=== PATIENT | male | born 1970 | race Caucasian/White ===

== ENCOUNTER 2019-06-28 09:32 | Observation (INO) ==
[~2019-06-28 09:32] MED LIST: Ropivacaine/PF 0.5% 24.62 ML, EPINEPHrine 0.25 MG, Ketorolac 15 MG, Water for inj. (ste... IR ONE
[2019-06-28] MEDS ORDERED: CeFAZolin Syr 3,000MG/30 ML 3,000 MG/30 ML SYRINGE IVPB ONE (10:02)
[2019-06-28] MEDS ORDERED: Acetaminophen IV 1,000 MG/100 ML INFUS..BTL IVPB ONE (10:11)
[2019-06-28] MEDS ORDERED: Famotidine 20 MG/2 ML VIAL IVP ONE (10:11)
[2019-06-28] MEDS ORDERED: Lidocaine -MPF 2% 2 ML VIAL ONE (10:14)
[2019-06-28] MEDS ORDERED: *HR* Propofol 200 MG/20 ML VIAL IVP ONE (10:14)
[2019-06-28] MEDS ORDERED: Ringers Solution, Lactated 1,000 ML IVC SCH ×2 (10:15→14:43)
[2019-06-28] MEDS ORDERED: *HR* FentaNYL (PF) 100 MCG/2 ML VIAL ONE (10:15)
[2019-06-28] MEDS ORDERED: Tranexamic Acid 1,000 MG/10 ML VIAL ONE ×2 (10:15→11:51)
[2019-06-28] MEDS ORDERED: *HR* Midazolam HCl 2 MG/2 ML VIAL ONE (10:15)
--- NOTE | 2019-06-28 10:15 | Discharge Summary ---
<MayankMonica E - Last Filed: 06/28/19 10:14> Date of Encounter: 06/28/19 - Hospital Course Hospital course: Mr. Santos is a 49 year old male - Time Spent with Patient Total time spent providing and/or coordinating discharge services: - Discharge Medications Prescriptions: New Aspirin Enteric Coated [Aspirin EC] 325 mg PO BID 10 Days #20 tablet. Docusate Sodium [Colace] 100 mg PO BID 5 Days #10 capsule OxyCODONE Immed Rel [Roxicodone 5 MG] 5 mg PO Q6HR PRN 5 Days #20 tablet PRN Reason: Severe Pain Continued Diltiazem CD (24hr) [Cardizem CD] 180 mg PO DAILY Discontinued Aspirin [Lo-Dose Aspirin EC] 81 mg PO DAILY Home Medications: Aspirin Enteric Coated [Aspirin EC] 325 mg PO BID 10 Days #20 tablet. 06/28/19 [Rx] Diltiazem CD (24hr) [Cardizem CD] 180 mg PO DAILY 06/28/19 [History] Docusate Sodium [Colace] 100 mg PO BID 5 Days #10 capsule 06/28/19 [Rx] OxyCODONE Immed Rel [Roxicodone 5 MG] 5 mg PO Q6HR PRN 5 Days #20 tablet 06/28/19 [Rx] Allergies/Adverse Reactions: Allergy/AdvReac Type Severity Reaction Status Date / Time Epidural Tray Allergy Unknown See Uncoded 06/15/19 14:03 Comments Primary care physician: PCP NONE - Patient Status Disposition: Home, Self-Care Condition: Good - Discharge Instructions Follow Up With: NONE,PCP [Primary Care Provider] - Additional Instructions: Discharge Instructions: Total Knee Replacement Please call [facility] ([phone]), your Primary Care Physician, or report to the Emergency Room if you have any of the following symptoms: Nausea, vomiting, fever greater that 101.5, swelling, chest pain, shortness of breath, increased pain/redness/drainage/odor for your incision site, numbness/tingling, or any other concerning symptoms. ACTIVITY:Weight-bearing as tolerated. You may progress off support (crutches or walker) as tolerated. Incentive Spirometer 10 times an hour. MEDICATIONS: Upon discharge resume your home medications. Take all the medications as prescribed. Take a stool softener if taking narcotic pain medications. Stool softeners are only effective if you drink enough fluids. Drink 6-8 glass of water or fluids a day, unless this is not allowed for another health problem. Despite using stool softeners, if you haven't had a bowel movement in 3 days, please switch to a gentle laxative. Gentle laxatives are sold over the counter. You should have a bowel movement within 24 hours, if not call the office. You will be discharged from the hospital with a prescription for pain medication. You are encouraged to decrease the use of narcotic pain medication as tolerated. Should you require a refill, please call the office. [facility] prescribes narcotic pain medication for only 4-6 weeks after surgery. If you require pain medication beyond this time period, you may be referred to your Primary Care Physician or to the Pain Clinic for further evaluation. Plan ahead for refills on pain medication as many narcotics either need to be picked up at the office or mailed. It is best to call 48-72 hours in advance of needing a prescription refill so you don't run out of medication. To help control the post-operative pain, you may take NSAIDs (Aleve,Advil, Motrin, Ibuprofen, Naprosyn) or Tylenol as prescribed on the bottle in addition to the pain medication. ANTICOAGULATION (blood thinners): Continue your Aspirin, Lovenox or Coumadin as prescribed to help prevent a blood clot in the leg or in the lungs. As long as your incision remains dry and you tolerate the NSAIDs (Aleve, Advil, Motrin, ibuprofen, naprosyn), it is OK to use the NSAIDS while you are taking your anticoagulation medication. Should your incision start to drain, stop the NSAID and contact our office. Common symptoms of blood clot in the legs include: localized pain, swelling, calf tenderness, redness or discoloration of the skin. Blood clot in the lung symptoms include: shortness of breath, rapid pulse, sweating, and chest pain that worsens with deep breathing, coughing up blood, lightheadedness, feelings of anxiety. If you experience any of these symptoms notify your physician immediately, go to the emergency room, or if having trouble breathing, call 911. WOUND CARE: Leave the dressing on for 7 to 10days. You may change the dressing if it becomes saturated greater than 50%. Do not get the dressing wet at anytime. Wash your hands with antibacterial soap, rinse and dry prior to any wound care. If you have yudy the visiting nurse or rehab facility can remove the stapes 10-14 days after surgery and place steri-strips across the wound. Leave the steri-strips in place until they fall off on their won. You may let water from the shower run on top of the steri-strips. If you do not have a visiting nurse or rehab facility, you will need to return to the office at 10-14 days for the yudy to be removed. If you have itching or redness around the dressing call the office. FOLLOW-UP: Please follow up with your surgeon in the orthopedic clinic in 4 weeks from the day of surgery. If you have yudy that need to be removed, you will need to come back to the office in 10-14 days from the day of surgery. <Mandeep Harrison - Last Filed: 06/29/19 06:43> Orders not resulted at time of discharge: Pending orders 06/28/19 12:28 Surgical Pathology [PTH] Routine Date of Encounter: 06/29/19 - Hospital Course Hospital course: Mr. Santos is a 49 year old male - Time Spent with Patient Total time spent providing and/or coordinating discharge services: Primary care physician: PCP NONE Consults: 06/28/19 14:43 Consult to Nutrition [CONS] Routine Comment: Consulting Provider: NUTRITION Reason for Dietary Consult: Other Other:: Proper nutrition to facilitate wound healing Consult to Occupational Therapy [CONS] Routine Comment: Evaluate, develop and implement POC Reason for Consult: post knee surgery Does patient have active BEDREST order?: No Is patient medically & hemodynamically stable?: Yes Consult to Orthopedic Navigator [CONS] [CONS] Routine Consult to Physical Therapy [CONS] Routine Comment: Evaluate, develop and impliment POC Reason for Consult: post knee surgery Does patient have active BEDREST order?: No Is patient medically & hemodynamically stable?: Yes Consult to Egg Processor [CONS] Routine Reason for SW Consult: post op joint replacement RT Post Op Consult [CONS] Routine Labs on day of discharge: Labs from last 24 hours 06/29/19 06/29/19 06/28/19 00:55 00:55 20:06 WBC 10.7 RBC 4.19 Hgb 12.4 L D Hct 37.6 MCV 89.7 MCH 29.6 MCHC 33.0 RDW 12.7 Plt Count 244 MPV 9.1 L Immature Gran % 0.4 Seg Neutrophils % 90.5 Lymphocytes % 6.1 Monocytes % 2.9 Eosinophils % 0.0 Basophils % 0.1 Neutrophils # 9.7 H Lymphocytes # 0.7 Monocytes # 0.3 Eosinophils # 0.0 Basophils # 0.0 Sodium 137 Potassium 4.3 Chloride 105 Carbon Dioxide 23 BUN 14 Creatinine 0.72 Est GFR ( Amer) > 60 Est GFR (Non-Af Amer) > 60 BUN/Creatinine Ratio 19 Glucose 149 H POC Glucose 140 H Calculated Osmolality 287 Calcium 8.8 06/28/19 01:00 WBC RBC Hgb 14.2 Hct 43.8 MCV MCH MCHC RDW Plt Count MPV Immature Gran % Seg Neutrophils % Lymphocytes % Monocytes % Eosinophils % Basophils % Neutrophils # Lymphocytes # Monocytes # Eosinophils # Basophils # Sodium Potassium Chloride Carbon Dioxide BUN Creatinine Est GFR ( Amer) Est GFR (Non-Af Amer) BUN/Creatinine Ratio Glucose POC Glucose Calculated Osmolality Calcium - Impressions ITS Impressions Knee X-Ray 06/28/19 01:00 IMPRESSION: Anatomic alignment status post right knee arthroplasty. No evidence of hardware complication. D/ / Amador Yadav MD / Amador Yadav MD Interpreting Provider: Amador Yadav MD <Monica Curtis - Last Filed: 06/30/19 13:16> Orders not resulted at time of discharge: Pending orders 06/28/19 12:28 Surgical Pathology [PTH] Routine Date of Encounter: 06/30/19 Time of Encounter: 12:00 - Discharge Diagnosis (1) Status post total right knee replacement Priority: Primary Status: Acute (2) Osteoarthritis of right knee Priority: Primary Status: Chronic Qualifiers: Osteoarthritis type: unspecified Qualified Code(s): M17.11 - Unilateral primary osteoarthritis, right knee (3) HTN (hypertension) Priority: Secondary Status: Chronic Qualifiers: Hypertension type: essential hypertension Qualified Code(s): I10 - Essential (primary) hypertension (4) JOSS (obstructive sleep apnea) Priority: Secondary Status: Chronic (5) Obesity (BMI 30-39.9) Priority: Secondary Status: Chronic (6) Afib Priority: Secondary Status: Chronic Qualifiers: Atrial fibrillation type: unspecified Qualified Code(s): I48.91 - Unspecified atrial fibrillation - Hospital Course Hospital course: Mr. Santos is a 49 year old male status post right TKR 06/28/19 with medical history of HTN, JOSS, afib, obesity. He participated in therapy and was able to demonstrate ability to navigate stairs, necessary for home. He did have increase in pain overnight in calf and thigh, doppler was negative for DVT and this pain did improve with addition of muscle relaxers. He is stable for discharge home at this time and will follow up in [facility] office next week. PCR - POD#2 s/p right TKR 06/28/19 Patient seen at bedside, without complaints. A&O x 3 Afebrile, vital signs stable. Dressings had minimal drainage, will be changed today. mild calf tenderness to palpation, good dorsiflexion of foot, sensation intact distally. doppler overnight was negative for DVT. Labs reviewed. H/H - 11.8/36.3 stable, asymptomatic Pain control: adequate with addition of muscle relaxer. will send rx home for this as well. Patient requests to have gabapentin removed from his med list as he states he does not like how it makes him feel and no longer wants to take it. Participating in PT. much improved on maneuvering stairs today. he does have chronic back pain causing weakness to left leg and recommended to wear left knee brace as well while ambulating to prevent buckling All questions and concerns addressed. Educated on use of incentive spirometer. Encouraged ambulation and proper hydration. Patient educated on post-operative restrictions and post-operative care. Assessment and plan: Continue with postoperative care Discharge plan: Home with outpatient therapy. - Time Spent with Patient Total time spent providing and/or coordinating discharge services: Date of admission: 06/28/19 Primary care physician: PCP NONE Consults: 06/28/19 14:43 Consult to Nutrition [CONS] Routine Comment: Consulting Provider: NUTRITION Reason for Dietary Consult: Other Other:: Proper nutrition to facilitate wound healing Consult to Occupational Therapy [CONS] Routine Comment: Evaluate, develop and implement POC Reason for Consult: post knee surgery Does patient have active BEDREST order?: No Is patient medically & hemodynamically stable?: Yes Consult to Orthopedic Navigator [CONS] [CONS] Routine Consult to Physical Therapy [CONS] Routine Comment: Evaluate, develop and impliment POC Reason for Consult: post knee surgery Does patient have active BEDREST order?: No Is patient medically & hemodynamically stable?: Yes Consult to Egg Processor [CONS] Routine Reason for SW Consult: post op joint replacement RT Post Op Consult [CONS] Routine Discharging clinician: Mandeep Harrison Anticipated date of discharge: 06/30/19 Labs on day of discharge: Labs from last 24 hours 06/28/19 06/28/19 20:06 01:00 Hgb 14.2 Hct 43.8 POC Glucose 140 H Short CBC 06/30/19 Range/Units 08:29 WBC 8.4 (4.3-11.1) K/mcL Hgb 11.8 L (12.9-16.9) g/dL Hct 36.3 L (37.5-50.1) % Plt Count 228 (140-400) K/mcL Neutrophils # 5.1 (1.6-8.9) K/mcL BMP 06/30/19 Range/Units 08:29 Sodium 139 (136-145) mEq/L Potassium 4.3 (3.5-5.1) mEq/L Chloride 103 (98-107) mEq/L Carbon Dioxide 31 H (23-29) mEq/L BUN 16 (6-20) mg/dL Creatinine 0.89 (0.70-1.30) mg/dL Glucose 105 (70-105) mg/dL Calcium 8.9 (8.6-10.3) mg/dL - Impressions ITS Impressions Knee X-Ray 06/28/19 01:00 IMPRESSION: Anatomic alignment status post right knee arthroplasty. No evidence of hardware complication. D/ / Amador Yadav MD / Amador Yadav MD Interpreting Provider: Amador Yadav MD - Patient Status Functional capacity at discharge: uses cane/walker Overall status at discharge: patient is back to baseline - Diet and Activity Activity: ambulate only with your walker, as per physical therapy Diet: advance to your usual diet
--- NOTE | 2019-06-28 10:38 | History & Physical Report ---
Date of Encounter: 06/28/19 Time of Encounter: 10:38 24 Hour HP Update - Instructions Instructions: If the History and Physical is less than 30 days old and was completed prior to A.M. admission and or procedure and has NOT been updated on calendar day of procedure please complete this update prior to performing procedure. - Update Patient reports changes in Medical Condition: No Changes in examination, assessment, or condition: No Changes in Medication: No Preop tests/diagnostics Reviewed: Yes Surgery Remains Indicated: Yes Consent for Planned Operative Procedure(s) Verified: Yes - Pre-Operative Checklist Preoperative Checklist Indicated: No Prophylactic Antibiotic Ordered: Yes Is VTE Prophylaxis Indicated?: Yes
--- NOTE | 2019-06-28 10:54 | Anesthesia Evaluation PreOp ---
Date of Encounter: 06/28/19 Time of Encounter: 11:00 - Past History Planned Operation: Rt TKA Cardiac History: HTN, Hyperlipidemia, Arrhythmia (AFib) Pulmonary History: JOSS Dx Other Medical History: Diabetes Type II, Other (Obese) Anesthesia History: No Prior Anesthetic Complications Alcohol Use: rarely Drug use: none Medications and Allergies Aspirin Enteric Coated [Aspirin EC] 325 mg PO BID 10 Days #20 tablet. 06/28/19 [Rx] Aspirin [Lo-Dose Aspirin EC] 81 mg PO DAILY 06/28/19 [History] Diltiazem CD (24hr) [Cardizem CD] 180 mg PO DAILY 06/28/19 [History] Docusate Sodium [Colace] 100 mg PO BID 5 Days #10 capsule 06/28/19 [Rx] OxyCODONE Immed Rel [Roxicodone 5 MG] 5 mg PO Q6HR PRN 5 Days #20 tablet 06/28/19 [Rx] Allergy/AdvReac Type Severity Reaction Status Date / Time Epidural Tray Allergy Unknown See Uncoded 06/15/19 14:03 Comments - Meds/Allergy Pre-op Review Medications Reviewed: Yes Allergies Reviewed: Yes Beta Blockers on Current Med List: No Anesthesia Results - Labs Laboratory Tests 06/10/19 06/10/19 10:17 10:17 Hgb 14.6 Hct 44.5 Plt Count 268 Sodium 138 Potassium 4.0 BUN 16 Creatinine 0.82 - Imaging EKG: report reviewed (SR) Additional studies: 2019 ECHO EF 55%, no pulm htn Anesthesia Exam O2 Sat Height 1.83 m Height 1.83 m Weight 124.738 kg Weight 124.738 kg O2 Sat by Pulse Oximetry 95 Vital Signs Temp Pulse Resp BP Pulse Ox 98.4 F 68 18 139/77 95 06/28/19 10:34 06/28/19 10:34 06/28/19 10:34 06/28/19 10:34 06/28/19 10:34 Height: 6'0 Weight: 275 lbs NPO (# of Hours): MN Pain Scale: 0 - HEENT Pupil (Motor): Pupils equal, EOMI Mallampati: II Teeth: Normal Oral Opening: Greater than 3 - HEALTH AND SAFETY INSPECTOR LOC: Oriented HEALTH AND SAFETY INSPECTOR Motor: Normal RUE, Normal LUE, Normal RLE, Normal LLE, Normal Face HEALTH AND SAFETY INSPECTOR Sensory: Normal: RUE, LUE, RLE, LLE, Face - Cardiac Rhythm: Regular Murmur: None JVD: No Carotid Bruit: No - Pulmonary Breath Sounds: bilateral Clear Respiratory Effort: Symmetrical Anesthesia Assess/Plan ASA Score: 3 Level of consciousness: Cooperative, Oriented Anesthetic Plan: General, Regional Nerve Block Regional Nerve Block Plan: Adductor canal, Other (IPACK) Reason for No Neuroaxial/Regional Block: Patient refusal, Other (Lumbar-Sacral Spinal Fusion and patient refuse SAB) Monitoring Plan: Standard Monitors Recovery Plan: PACU (Discussed GA, Adductor Canal Block, patient refuses spinal)
[2019-06-28] MEDS ORDERED: Ropivacaine/PF 0.5% 30 ML VIAL ONE (11:02)
[2019-06-28] MEDS ORDERED: ROPIVACAINE/PF/NS 0.25% 1 EACH SYRINGE INTRAART ONE (11:02)
[2019-06-28] MEDS ORDERED: Ethanol\\Acetic Acid\\Na Ace\\Ben 1,000 ML IRRIG.SOLN IR ONE (11:19)
--- NOTE | 2019-06-28 11:24 | Anesthesia Procedures ---
Date of Encounter: 06/28/19 Time of Encounter: 11:15 Procedures: Anesthesia - Nerve Block Procedure Date: 06/28/19 Time: 11:15 Surgical Procedure: Right TKA Checklist: Correct Patient Identifier, Correct procedure, History checked Correct side: Right Blood Thinner: No Monitor Applied: EKG, BP, Pulse Oximetry Supplemental Oxygen via Nasal Cannula (L/min): 2 Sedation: Versed (mg): 2 Sedation: Fentanyl (mcg): 50 Indication: Post Op Analgesia (per potter) Pre-op Neuro Deficits: No Block Type: Other (adductor, ipack, CHARBEL (per lapurga)) Catheter placed: No Sterile Technique: Yes Ultrasound used: Yes Anatomy identified: Yes Visual spread of Local: Yes Neuro Stimulation: No Blood on Needle Aspiration: No Smooth Injection of Local: Yes Pain with Injection of Local: No Prep: Chlorhexadine Needle: 22 x 50 mm Stimuplex (adductor), 21 x 100 mm Stimuplex (ipack, CHARBEL) Local: Ropivacaine (20cc 0.5% with 4mg decadron adductor, 10cc 0.25% ipack, 10cc 0.25% CHARBEL) Volume (cc): 20, 10, 10 Number of Attempts: 1 Complications: None/effective block Vitals: Vital Signs/O2 Sat/Glucose, Most Recent Temp Pulse Resp BP Pulse Ox 98.4 F 68 18 139/77 95 06/28/19 10:34 06/28/19 10:34 06/28/19 10:34 06/28/19 10:34 06/28/19 10:34 Comments: [facility]
[2019-06-28] MEDS ORDERED: *HR* HYDROmorphone (PF) 1 MG/ML SYRINGE IVP PRN (11:34)
[2019-06-28] MEDS ORDERED: *HR* Promethazine 25 MG/ML VIAL IVP PRN ×2 (11:34→14:43)
[2019-06-28] MEDS ORDERED: *HR* OxyCODONE Immed Rel 5 MG TABLET PO PRN (11:34)
[2019-06-28] MEDS ORDERED: Ondansetron 4 MG/2 ML VIAL IVP ONE (11:34)
[2019-06-28] MEDS ORDERED: Ketorolac 30 MG/ML VIAL ONE (11:59)
[2019-06-28] MEDS ORDERED: Ondansetron 4 MG/2 ML VIAL ONE (11:59)
[2019-06-28] MEDS ORDERED: Dexamethasone 4 MG/ML VIAL ONE (11:59)
[2019-06-28] MEDS ORDERED: *HR* HYDROMORPHONE 2 MG/ML VIAL ONE (12:00)
--- NOTE | 2019-06-28 12:38 | Orthopedic Operative Note ---
Date of procedure: 06/28/19 Pre-op diagnosis: Right knee arthritis Post-op diagnosis: same Procedure: Procedure: Right robotic-assisted Total knee replacement Estimated blood loss: 200 cc Hardware: Metal and polyethylene replacement. [place] Femur: 7 Tibia:6 TS insert: 9 Patella: 39 Exam Under anesthesia: 1 degree flexion contracture 4 degree varus as calculated by the robot full flexion and no instability Procedural Notes: Grade 4 arthritic changes all 3 compartments. Operative procedure: The patient was brought to the operating room and placed on the operating room table. After general anesthesia was administered the operative knee was examined. Findings were noted in the exam under anesthesia. The operative extremity was prepped and draped in sterile surgical fashion. The patient received IV antibiotics prior to skin incision. A standard midline incision was made centered over the patella. The incision was made through the skin and subcutaneous tissue. A medial parapatellar tendon approach was performed. Care was taken to preserve tissue along the medial aspect of the patella. And to protect the patella tendon. The deep MCL was released off the medial tibia. The infra patella fat pad was excised. The patella was everted and cut was made at the level of the insertion of the quadriceps and patella tendon. The patella was sized the guide was seated and the lug holes are drilled. Knee was brought into flexion. Patient noted to have grade 4 arthritic changes all 3 compartments. Steinmann pins were placed in the tibia and the femur for the tibial and femoral arrays respectively. Checkpoints were also placed in the tibia and the femur for calculation purposes. The knee including the femur and the tibial registered. Osteophytes, ACL and PCL were excised at this point. Extension and flexion were assessed with a valgus stress components were adjusted on the computer to balance the knee. Femoral cuts were made first with robotic assistance, these included the anterior cut posterior cuts chamfer cuts. Tibial cut was then performed with robotic assistance as well. Bone fragments were removed, as well as the medial and lateral meniscus. The size 7 femoral guide was seated box cut was made lug holes are drilled. The size 6 tibial tray was seated and prepared with the fin cutter. Trial reduction with the 9 TS Cindy revealed extension of 0 degree and 2 varus full flexion. No varus valgus instability. Trial reduction revealed excellent patella tracking. All trial components were removed all bony surfaces were irrigated. The Tibia was seated followed by the femur, The selected Cindy size was seated and secured patella. Patient had similar findings for motion and stability. The knee was closed by the PA. The knee was then irrigated out with 2 L of pulse irrigation. The extensor mechanism was closed with #2 FiberWire suture and #2 PDS suture. The subcutaneous tissue was then irrigated and closed deep with #1 PDS suture superficially with 0 PDS suture and skin was closed with zip tie The patient was then placed in a sterile dressing and a postoperative brace extubated and transferred to recovery room in stable condition. Anesthesia: GETA Surgeon: Mandeep Harrison Was there an finance assistant present: Yes Inhalation Therapy Aides Teacher: Zack Coe Estimated blood loss (cc): 200 Disposition: PACU
[2019-06-28 13:58] LABS: Hematocrit 43.8 % (37.5-50.1); Hemoglobin 14.2 g/dL (12.9-16.9)
[2019-06-28] MEDS ORDERED: Ondansetron 4 MG/2 ML VIAL IVP PRN (14:43)
[2019-06-28] MEDS ORDERED: traMADol 50 MG TABLET PO PRN (14:43)
[2019-06-28] MEDS ORDERED: Naloxone 0.4 MG/ML INJ IVP PRN (14:43)
[2019-06-28] MEDS ORDERED: Sennosides 8.6 MG TABLET PO PRN (14:43)
[2019-06-28] MEDS ORDERED: Temazepam 15 MG CAPSULE PO PRN (14:43)
[2019-06-28] MEDS ORDERED: MOM Conc 10 ML UD.LIQ PO PRN (14:43)
--- NOTE | 2019-06-28 15:00 | Anesthesia Evaluation Post Op ---
Date of Encounter: 06/28/19 Time of Encounter: 15:00 - Vital Signs Vital Signs: Vital Signs/O2 Sat/Glucose, Most Current Temp Pulse Resp BP Pulse Ox 06/28/19 14:57 97.7 F 89 16 131/78 94 06/28/19 14:28 97.3 F L 88 16 127/76 92 06/28/19 14:18 67 15 132/75 96 06/28/19 13:59 67 12 131/69 97 06/28/19 13:49 97.0 F L 67 20 140/79 96 06/28/19 13:39 80 15 126/71 95 06/28/19 13:29 71 12 120/71 98 06/28/19 13:19 97.5 F L 82 20 152/82 98 06/28/19 11:25 73 16 137/80 98 06/28/19 11:09 71 18 147/84 98 - Lungs Lungs: Clear Ascult./Percussion - Airway Airway: Non-obstructed - Cardiovascular Regular Rate - Mental Status Mental Status: Alert & Oriented, Answers Appropriately - Pain Pain Scale: 0 - Nausea Vomiting Nausea Vomiting: Not Present - Hydration Hydration: Ice chips - Discharge PostOp Status: Transfer Patient to floor
[2019-06-28] MEDS: HYDROcodone BIT/Homatropine 5 MG TABLET PO PRN ×2 (15:46→23:21)
[2019-06-28] MEDS ORDERED: CeFAZolin Syr 3,000MG/30 ML 3,000 MG/30 ML SYRINGE IVPB SCH (16:00)
[2019-06-28] MEDS: Gabapentin 300 MG CAPSULE PO SCH ×2 (17:49→20:30)
[2019-06-28] MEDS: Ascorbic Acid 500 MG TABLET PO SCH (18:27)
[2019-06-28] MEDS: *HR* Enoxaparin 30 MG/0.3 ML SYRINGE SQ SCH (18:28)
[2019-06-28] MEDS: *HR* OxyCODONE Immed Rel 5 MG TABLET PO PRN (20:27)
[2019-06-28] MEDS: ceFAZolin 3,000 MG in 0.9 % Sodium Chloride 100 ML IVPB SCH (20:36)
[2019-06-29] MEDS ORDERED: ceFAZolin 3,000 MG in 0.9 % Sodium Chloride 100 ML IVPB SCH
[2019-06-29] MEDS: *HR* OxyCODONE Immed Rel 5 MG TABLET PO PRN ×5 (02:33→23:16)
[2019-06-29 02:48] LABS: Basophils % 0.1 %; Hematocrit 37.6 % (37.5-50.1); Immature Granulocytes % 0.4 % (0-4); Lymphocytes # 0.7 K/mcL (0.6-4.6); Lymphocytes % 6.1 %; Mean Corpuscular Hemoglobin 29.6 pg (28.0-33.3); Mean Corpuscular Volume 89.7 fL (83.0-100.0); Mean Platelet Volume 9.1 fL (9.4-12.4); Monocytes # 0.3 K/mcL (0.0-1.3); Monocytes % 2.9 %; Neutrophils # 9.7 K/mcL (1.6-8.9); Platelet Count 244 K/mcL (140-400); Red Blood Count 4.19 M/mcL (4.19-5.50); Red Cell Distribution Width 12.7 % (11.5-14.5); Segmented Neutrophils % 90.5 %; White Blood Count 10.7 K/mcL (4.3-11.1)
[2019-06-29 02:56] LABS: Hemoglobin 12.4 g/dL (12.9-16.9)
[2019-06-29 03:06] LABS: BUN/Creatinine Ratio 19 (6-26); Blood Urea Nitrogen 14 mg/dL (6-20); Calcium 8.8 mg/dL (8.6-10.3); Carbon Dioxide 23 mEq/L (23-29); Chloride 105 mEq/L (98-107); Glucose 149 mg/dL (70-105); Osmolality,Calculated 287 (280-300); Potassium 4.3 mEq/L (3.5-5.1); Sodium 137 mEq/L (136-145); eGFR For African Americans > 60 (> 60); eGFR For Non-African Americans > 60 (> 60)
[2019-06-29] MEDS: ceFAZolin 3,000 MG in 0.9 % Sodium Chloride 100 ML IVPB SCH (04:43)
[2019-06-29] MEDS: *HR* Enoxaparin 30 MG/0.3 ML SYRINGE SQ SCH ×2 (04:44→17:47)
--- NOTE | 2019-06-29 06:43 | Orthopedics Progress Note ---
Date of Encounter: 06/29/19 Time of Encounter: 06:42 Subjective Interval history: Patient was seen this morning doing well without complaints. Afebrile vital signs stable. Operative extremity: Neurovascularly intact Dressing clean dry and intact Calves nontender Assessment and plan: Continue with postoperative care Hematocrit 37 discharged today Objective Vital signs: Vital Signs Temp Pulse Pulse Resp BP Pulse Ox 06/29/19 02:25 98.6 F 70 16 115/68 95 06/28/19 23:49 70 06/28/19 23:19 98.3 F 73 16 129/69 95 06/28/19 19:18 98.2 F 85 16 136/82 96 06/28/19 14:57 97.7 F 89 16 131/78 94 06/28/19 14:28 97.3 F L 88 16 127/76 92 06/28/19 14:18 67 15 132/75 96 06/28/19 13:59 67 12 131/69 97 06/28/19 13:49 97.0 F L 67 20 140/79 96 06/28/19 13:39 80 15 126/71 95 06/28/19 13:29 71 12 120/71 98 06/28/19 13:19 97.5 F L 82 20 152/82 98 06/28/19 11:25 73 16 137/80 98 06/28/19 11:09 71 18 147/84 98 06/28/19 10:34 98.4 F 68 18 139/77 95 Intake and Output 06/28/19 06/28/19 06/29/19 15:59 23:59 07:59 Intake Total 30 / 380 350 / 380 1000 / 1000 Output Total 200 / 200 Balance -170 / 180 350 / 180 1000 / 1000 Intake: IV Fluids 30 / 130 100 / 130 850 / 850 Lactated Ringers 1,000 ML @ 75 750 / 750 mls/hr IVC .[id number] VANIA Rx#: [id number] Ancef Syringe 3,000 MG/30 ML 3, 30 / 30 000 mg In 30 ml @ 200 mls/hr IVPB PREOP ONE Rx#:[id number] Ancef 3,000 MG In 0.9 % Sodium 100 / 100 100 / 100 Chloride 100 ML @ 200 mls/hr IVPB Q8H VANIA Rx#:[id number] Oral 250 / 250 150 / 150 Output: Estimated Blood Loss 200 / 200 Other: # Voids 1 1 Weight 124.738 kg 129.8 kg Blood Glucose* 102 140 Patient Weight 06/29/19 23:59 Weight 129.8 kg - Labs CBC & BMP: 06/29/19 00:55 06/29/19 00:55 Labs: Abnormal lab results Hgb 12.4 g/dL (12.9-16.9) L D 06/29/19 00:55 MPV 9.1 fL (9.4-12.4) L 06/29/19 00:55 Neutrophils # 9.7 K/mcL (1.6-8.9) H 06/29/19 00:55 Glucose 149 mg/dL (70-105) H 06/29/19 00:55 POC Glucose 140 mg/dL (70-99) H 06/28/19 20:06 Consult Discharge Plan - Plan Referrals: NONE,PCP [Primary Care Provider] - Prescriptions: Aspirin Enteric Coated [Aspirin EC] 325 mg PO BID 10 Days #20 tablet. Docusate Sodium [Colace] 100 mg PO BID 5 Days #10 capsule OxyCODONE Immed Rel [Roxicodone 5 MG] 5 mg PO Q6HR PRN 5 Days #20 tablet PRN Reason: Severe Pain
[2019-06-29] MEDS: Diltiazem CD (24hr) 180 MG CAPSULE PO SCH (08:33)
[2019-06-29] MEDS: Multivit/Ca/Min/Fe/FA 1 TAB TABLET PO SCH (08:33)
[2019-06-29] MEDS: Aspirin Enteric Coated 81 MG Tablet PO SCH (08:33)
[2019-06-29] MEDS: Ascorbic Acid 500 MG TABLET PO SCH ×2 (08:33→17:47)
[2019-06-29] MEDS: Gabapentin 300 MG CAPSULE PO SCH (08:33)
--- NOTE | 2019-06-29 16:41 | Event Note ---
Date of Encounter: 06/29/19 Time of Encounter: 13:40 PCR - POD#1 s/p right TKR 06/28/19 Patient seen at bedside, without complaints. A&O x 3 Afebrile, vital signs stable. Dressings had minimal drainage. no calf tenderness to palpation, good dorsiflexion of foot, sensation intact distally. Labs reviewed. H/H - 12.4/37.6 stable, asymptomatic Pain control: adequate. Patient requests to have gabapentin removed from his med list as he states he does not like how it makes him feel and no longer wants to take it. Participating in PT. awaiting eval this afternoon for stairs All questions and concerns addressed. Educated on use of incentive spirometer. Encouraged ambulation and proper hydration. Patient educated on post-operative restrictions and post-operative care. Assessment and plan: Continue with postoperative care Discharge plan: Home with home health. Patient is 100% yanna, outpatient therapy will be covered by this but not home health or ECF. Patient has 14 steps to get in house and must accomplish this later today in therapy before being safe to be released home
[2019-06-29] MEDS ORDERED: Ketorolac 15 MG/ML VIAL IVP PRN (19:31)
[2019-06-29] MEDS ORDERED: Acetaminophen IV 1,000 MG/100 ML INFUS..BTL IVPB PRN (19:32)
[2019-06-29] MEDS: HYDROcodone BIT/Homatropine 5 MG TABLET PO PRN (19:51)
[2019-06-30] MEDS: HYDROcodone BIT/Homatropine 5 MG TABLET PO PRN (03:45)
[2019-06-30] MEDS: *HR* Enoxaparin 30 MG/0.3 ML SYRINGE SQ SCH (06:00)
[2019-06-30] MEDS: *HR* OxyCODONE Immed Rel 5 MG TABLET PO PRN ×3 (06:00→14:32)
[2019-06-30] MEDS: Ascorbic Acid 500 MG TABLET PO SCH (08:09)
[2019-06-30] MEDS: Diltiazem CD (24hr) 180 MG CAPSULE PO SCH (08:11)
[2019-06-30] MEDS: Multivit/Ca/Min/Fe/FA 1 TAB TABLET PO SCH (08:11)
[2019-06-30] MEDS: Aspirin Enteric Coated 81 MG Tablet PO SCH (08:11)
--- NOTE | 2019-06-30 08:29 | Orthopedics Progress Note ---
Date of Encounter: 06/30/19 Time of Encounter: 08:28 Subjective Interval history: Patient was seen this morning doing well without complaints. Afebrile vital signs stable. Operative extremity: Neurovascularly intact Dressing clean dry and intact Calves nontender Assessment and plan: Continue with postoperative care Doppler negative overnight, discharged today Objective Vital signs: Vital Signs Temp Pulse Resp BP Pulse Ox 06/30/19 07:47 98.2 F 70 18 109/59 97 06/30/19 03:41 97.7 F 54 17 115/69 97 06/29/19 23:45 97.7 F 62 16 105/64 95 06/29/19 18:58 98.9 F 80 16 148/68 94 06/29/19 15:36 98.3 F 85 16 133/69 96 06/29/19 10:58 97.6 F 63 16 116/68 96 Intake and Output 06/29/19 06/30/19 06/30/19 23:59 07:59 15:59 Intake Total 200 / 1440 Balance 200 / 1440 Intake: Oral 200 / 590 Other: # Voids 1 1 - Labs CBC & BMP: 06/29/19 00:55 06/29/19 00:55 Labs: Abnormal lab results Hgb 12.4 g/dL (12.9-16.9) L D 06/29/19 00:55 MPV 9.1 fL (9.4-12.4) L 06/29/19 00:55 Neutrophils # 9.7 K/mcL (1.6-8.9) H 06/29/19 00:55 Glucose 149 mg/dL (70-105) H 06/29/19 00:55 POC Glucose 140 mg/dL (70-99) H 06/28/19 20:06 Consult Discharge Plan - Plan Referrals: NONE,PCP [Primary Care Provider] - Prescriptions: Aspirin Enteric Coated [Aspirin EC] 325 mg PO BID 10 Days #20 tablet. Docusate Sodium [Colace] 100 mg PO BID 5 Days #10 capsule OxyCODONE Immed Rel [Roxicodone 5 MG] 5 mg PO Q6HR PRN 5 Days #20 tablet PRN Reason: Severe Pain
[2019-06-30 08:47] LABS: Basophils % 0.4 %; Eosinophils # 0.1 K/mcL (0.0-0.6); Eosinophils % 1.2 %; Hematocrit 36.3 % (37.5-50.1); Hemoglobin 11.8 g/dL (12.9-16.9); Immature Granulocytes % 0.4 % (0-4); Lymphocytes # 2.6 K/mcL (0.6-4.6); Lymphocytes % 31.2 %; Mean Corpuscular HGB Conc 32.5 g/dL (31.6-35.5); Mean Corpuscular Hemoglobin 29.6 pg (28.0-33.3); Mean Corpuscular Volume 91.2 fL (83.0-100.0); Mean Platelet Volume 8.9 fL (9.4-12.4); Monocytes # 0.6 K/mcL (0.0-1.3); Monocytes % 6.8 %; Neutrophils # 5.1 K/mcL (1.6-8.9); Platelet Count 228 K/mcL (140-400); Red Blood Count 3.98 M/mcL (4.19-5.50); Red Cell Distribution Width 13.4 % (11.5-14.5); White Blood Count 8.4 K/mcL (4.3-11.1)
[2019-06-30 09:06] LABS: BUN/Creatinine Ratio 18 (6-26); Blood Urea Nitrogen 16 mg/dL (6-20); Calcium 8.9 mg/dL (8.6-10.3); Carbon Dioxide 31 mEq/L (23-29); Chloride 103 mEq/L (98-107); Glucose 105 mg/dL (70-105); Osmolality,Calculated 290 (280-300); Potassium 4.3 mEq/L (3.5-5.1); Sodium 139 mEq/L (136-145); eGFR For African Americans > 60 (> 60); eGFR For Non-African Americans > 60 (> 60)
[2019-06-30] MEDS ORDERED: Acetaminophen 325 MG TABLET PO ONE (11:41)
[2019-06-30 13:07] VITALS: BP 127/69
== END 2019-06-30 15:15 | disposition home or self-care (01) ==
LOC: 3NENU 09:32 → SAMDAY 09:32 → 3NENU 14:21
PROVIDERS: ADMIT Orthopaedic Surgery; ATTEND Orthopaedic Surgery

== ENCOUNTER 2021-08-07 12:21 | Observation (INO) ==
[2021-08-07] MEDS ORDERED: 0.9 % Sodium Chloride 1,000 ML ONE (12:29)
[2021-08-07] MEDS ORDERED: 0.9 % Sodium Chloride 1,000 ML IVC SCH (12:45)
[2021-08-07 12:54] LABS: Basophils % 0.2 %; Eosinophils % 0.9 %; Hematocrit 36.3 % (37.5-50.1); Hemoglobin 11.8 g/dL (12.9-16.9); Immature Granulocytes % 0.5 % (0-4); Lymphocytes # 0.7 K/mcL (0.6-4.6); Mean Corpuscular HGB Conc 32.5 g/dL (31.6-35.5); Mean Corpuscular Hemoglobin 30.1 pg (28.0-33.3); Mean Corpuscular Volume 92.6 fL (83.0-100.0); Mean Platelet Volume 9.7 fL (9.4-12.4); Monocytes # 0.3 K/mcL (0.0-1.3); Monocytes % 7.6 %; Neutrophils # 3.3 K/mcL (1.6-8.9); Platelet Count 178 K/mcL (140-400); Red Blood Count 3.92 M/mcL (4.19-5.50); Red Cell Distribution Width 13.2 % (11.5-14.5); Segmented Neutrophils % 75.8 %; White Blood Count 4.3 K/mcL (4.3-11.1)
[2021-08-07 13:00] LABS: INR 1.1; Prothrombin Time 12.3 Seconds (9.4-12.1)
[2021-08-07 13:02] LABS: Activated Partial Thrombo Time 32.5 Seconds (26.0-36.0)
[2021-08-07] MEDS ORDERED: Isovue-370 500 ML BOTTLE IVP ONE (13:25)
[2021-08-07 13:27] LABS: Alanine Aminotransferase 63 Units/L (7-52); Albumin 3.6 g/dL (3.5-5.7); Albumin/Globulin Ratio 1.3 (1.1-2.2); Alkaline Phosphatase 74 Units/L (34-104); Aspartate Amino Transferase 65 Units/L (13-39); BUN/Creatinine Ratio 14 (6-26); Bilirubin,Direct 0.2 mg/dL (0.0-0.2); Bilirubin,Indirect 0.6 mg/dL (0.0-1.0); Bilirubin,Total 0.8 mg/dL (0.3-1.0); Blood Urea Nitrogen 18 mg/dL (6-20); C-Reactive Protein 33 mg/L (Less than 10); Calcium 8.4 mg/dL (8.6-10.3); Carbon Dioxide 24 mEq/L (23-29); Chloride 102 mEq/L (98-107); Globulin 2.7 g/dL (2.4-3.5); Glucose 111 mg/dL (70-105); Lactate Dehydrogenase 270 Units/L (140-271); Magnesium 2.1 mg/dL (1.6-2.6); Osmolality,Calculated 283 (280-300); Phosphorous 2.6 mg/dL (2.7-4.5); Sodium 135 mEq/L (136-145); Total Protein 6.3 g/dL (6.4-8.9); Troponin I < 0.03 ng/mL (< 0.04); eGFR For African Americans > 60 (> 60); eGFR For Non-African Americans 60 (> 60)
[2021-08-07 13:29] LABS: Ferritin 820 ng/mL (20-250)
[2021-08-07] MEDS ORDERED: Ondansetron 4 MG/2 ML VIAL IVP PRN (17:36)
[2021-08-07] MEDS ORDERED: Naloxone 0.4 MG/ML INJ IVP PRN (17:36)
[2021-08-07] MEDS ORDERED: Acetaminophen 325 MG TABLET PO PRN (17:36)
[2021-08-07] MEDS ORDERED: Benzonatate 100 MG CAPSULE PO PRN (17:39)
[2021-08-07] MEDS ORDERED: tiZANidine 4 MG TABLET PO PRN (17:58)
[2021-08-07] MEDS ORDERED: Remdesivir 200 MG in 0.9 % Sodium Chloride 100 ML IVPB ONE (17:59)
[2021-08-07] MEDS: *HR* Heparin 5,000 UNIT/ML VIAL SQ SCH (23:26)
[2021-08-08 02:50] LABS: Hematocrit 33.4 % (37.5-50.1); Hemoglobin 11.1 g/dL (12.9-16.9); Immature Granulocytes % 0.5 % (0-4); Lymphocytes # 0.3 K/mcL (0.6-4.6); Lymphocytes % 16.3 %; Mean Corpuscular HGB Conc 33.2 g/dL (31.6-35.5); Mean Corpuscular Hemoglobin 29.8 pg (28.0-33.3); Mean Corpuscular Volume 89.8 fL (83.0-100.0); Mean Platelet Volume 9.4 fL (9.4-12.4); Monocytes # 0.1 K/mcL (0.0-1.3); Monocytes % 3.6 %; Neutrophils # 1.6 K/mcL (1.6-8.9); Platelet Count 175 K/mcL (140-400); Red Blood Count 3.72 M/mcL (4.19-5.50); Red Cell Distribution Width 12.8 % (11.5-14.5); Segmented Neutrophils % 79.6 %
[2021-08-08 03:10] LABS: Albumin 3.5 g/dL (3.5-5.7); Albumin/Globulin Ratio 1.3 (1.1-2.2); Bilirubin,Direct 0.2 mg/dL (0.0-0.2); Bilirubin,Indirect 0.4 mg/dL (0.0-1.0); Bilirubin,Total 0.6 mg/dL (0.3-1.0); Globulin 2.6 g/dL (2.4-3.5); Total Protein 6.1 g/dL (6.4-8.9)
[2021-08-08 03:13] LABS: BUN/Creatinine Ratio 17 (6-26); Blood Urea Nitrogen 16 mg/dL (6-20); Calcium 8.1 mg/dL (8.6-10.3); Carbon Dioxide 22 mEq/L (23-29); Chloride 102 mEq/L (98-107); Glucose 123 mg/dL (70-105); Magnesium 2.2 mg/dL (1.6-2.6); Osmolality,Calculated 281 (280-300); Potassium 4.1 mEq/L (3.5-5.1); Sodium 134 mEq/L (136-145); Troponin I < 0.03 ng/mL (< 0.04); eGFR For African Americans > 60 (> 60); eGFR For Non-African Americans > 60 (> 60)
[2021-08-08] MEDS: *HR* Heparin 5,000 UNIT/ML VIAL SQ SCH (05:07)
[2021-08-08 11:10] VITALS: BP 108/68; PULSE 65; TEMP 98.3
[2021-08-08 12:06] VITALS: O2SAT 95
[2021-08-08] MEDS ORDERED: Remdesivir 100 MG in 0.9 % Sodium Chloride 100 ML IVPB SCH (18:00)
== END 2021-08-08 15:16 | disposition home health service (06) ==
LOC: 2ANU 12:21 → EMEROOARM 12:21 → SUATTDRO 20:35 → 2ANU 23:04
PROVIDERS: ADMIT Family Medicine; ATTEND Internal Medicine